=== PATIENT | female | born 1990 | race Caucasian/White ===

== ENCOUNTER 2020-05-12 07:55 | Emergency (ER) | payer OTHER ==
[~2020-05-12] VITALS: Ht 162.6 cm; Wt 81.7 kg
[2020-05-12 08:04] VITALS: BP 124/66
[2020-05-12] MEDS ORDERED: HYDROCODON-ACE1 EAC7 PO (08:33)
[2020-05-12] MEDS ORDERED: FLEXERIL PO (08:33)
== END 2020-05-12 08:44 | disposition home or self-care (01) ==
LOC: M.ERS 07:55
DX: S46.911A Strain of unspecified muscle, fascia and tendon at shoulder and upper arm level, right arm, initial encounter (principal); Z88.0 Allergy status to penicillin; Z88.2 Allergy status to sulfonamides; Z88.6 Allergy status to analgesic agent; Z91.040 Latex allergy status; X58.XXXA Exposure to other specified factors, initial encounter; Y93.89 Activity, other specified; Y92.89 Other specified places as the place of occurrence of the external cause; Y99.8 Other external cause status